=== PATIENT | male | born 1955 | race Caucasian/White ===

== ENCOUNTER 2025-01-18 10:04 | Outpatient (AMB) | payer MEDICARE, OTHER, SELFPAY ==
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
[2025-01-18 10:09] VITALS: BP 106/80; PULSE 76; O2SAT 98; BMI 23.8
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
--- OUTSIDE RECORDS SUMMARY | 2025-01-18 11:05 | XMS_ITS ---
Author Organization [facility] Address [address] [place] [address] Care Team Providers Care Dental Lab Technician Name Role Phone AUSTIN NIETO Primary Care Provider REASON FOR VISIT LDCT form Encounters Encounter Location Date Provider Diagnosis [facility] [address] [place] [address] 05/09/2024 AUSTIN NIETO Plan Of Treatment Next Appt Details Provider Name:AUSTIN NIETO , 04/27/2025 08:00:00 AM, [address], [place], [address], Progress Notes * Dov HILLDOB:[birth year] (68 yo M)Acc No.[id number]:05/09/2024 Patient:?Dov HILL :1955???Age:68 Y???Sex:Male Address:[place] [address] * true * Date:? Generated for Jasviri óscar/Ingris/eTransmitting on:?01/18/2025 11:05 AM EDT
--- OUTSIDE RECORDS SUMMARY | 2025-01-18 11:05 | XMS_ITS ---
Author Organization [facility] Address [address] [place] [address] Care Team Providers Care Record Center Coordinator Name Role Phone EMILIA AUSTIN Primary Care Provider REASON FOR VISIT LDCT Screening form Encounters Encounter Location Date Provider Diagnosis [facility] [address] [facility] [address] [place] [address] 04/27/2024 AUSTIN NIETO Plan Of Treatment Next Appt Details Provider Name:AUSTIN NIETO , 04/27/2025 08:00:00 AM, [address] [facility] [address], [place], [address], Progress Notes * Dov HILLDOB:[birth year] (68 yo M)Acc No.[id number]:04/27/2024 Patient:?Dov HILL :1955???Age:68 Y???Sex:Male Address:[place] [address] * true * Date:? Generated for Printi ng/Fadeirdreg/eTransmitting on:?01/18/2025 11:05 AM EDT
--- OUTSIDE RECORDS SUMMARY | 2025-01-18 11:06 | XMS_ITS ---
Author Organization [facility] Address [address] [place] [address] Care Team Providers Care Client Operations Manager Name Role Phone RYANAUSTIN Garcia Primary Care Provider [phone] Allergies No Known Allergies Reason For Referral Reason Evaluation and manag ement Diagnosis 1 Low back pain, unspe cified (M54.50) Referral Organization [facility] Referring Provider First Name AUSTIN Referring Provider Last Name RYANJose Referring Provider Speciality Internal M edicine Referred Provider Specialty Physical The rapist General Notes Referral sent to [facility] in [place] - Office will call patient for scheduling.Maritza Latraya 06/30/2024 04:59:28 PM > Referral Priority Routine REASON FOR VISIT pain, back Medications Medication SIG (Take, Route, Frequency, Duration) Notes Start Date End Date Status Prevnar 20 0.5 ML as directed Intramuscular [...] a day for 14 days 06/22/2024 Active Shingrix 50 MCG/0.5ML as directed Intramuscular 1 for 365 days 02/18/2022 Not-Taking Vital Signs Temperature 96.7 degrees Fahrenheit 06/22/20 24 Oximetry 100 % 06/22/2024 Heart Rate 68 /min 06/22/2024 Blood pressure systolic 130 mm Hg 06/22/20 24 Blood pressure diastolic 82 mm Hg 024 Weight 164.9 lbs 06/22/2024 BMI 24.35 kg/m2 06/22/2024 Height 69 in 06/22/2024 Encounters Encounter Location Date Provider Diagnosis [facility] [address] [address] 06/22/2024 AVILA RYANJose Strain of muscle, fascia and tendon of lower back, initial encounter S39.012A Assessments Encounter Date Diagnosis (ICD Code) Assessment Notes Treatment Notes Treatment Clinical Notes Section Notes 06/22/2024 Strain of muscle, fascia and tendon [...] Meloxicam, 15 MG, once a day and methylprednisolon e, 4 MG, with food BID for 5 days. Referred to Physical therapy. Ice the affected area after activity. General health concerns discussed with patient. Scribe services used to formulate this note under HIPAA compliance and under [place] law mandated for scribe services. Patient aware of service. Verbal consent and written consent taken from the patient. Patient understands and verbalizes understanding of the scribes services and all questions answered regarding scribes services. Patient agrees to use of scribes services. Plan Of Treatment Medication Medication Name Sig Start Date Stop Date Notes methylPREDNISolone 4 MG 1 tablet with fo od or milk Orally every 12 hrs for 5 days 06/22/2024 Meloxicam 15 MG 1 tablet Orally Once a day for 30 days 06/22/2024 tiZANidine HCl 4 MG 1 tablet at bedtime as needed Orally Once a day for 14 days 06/22/2024 Referrals Referral Date Details 06/22/2024 06/22/2024, Evaluati on and management Next Appt Details Follow Up: next appt, Reason : Provider Name:AUSTIN NIETO , 04/27/2025 08:00:00 AM, [address] [address], [place], [address], Progress Notes * Dov HILLDOB:[birth year] (68 yo M)Acc No.[id number]:06/22/2024 Patient:?Dov HILL Provider:?AUSTIN NIETO MD :1955???Age:68 Y???Sex:Male Waldo e:06/22/2024 Address:[address] [place] [address] Radha moses [id number] Subjective: * Chief Complaints: * ???Pain, back * HPI: ???Internal Medicine:? Mr. Hill is a 68-year-old gentleman with ASSHA and is a hepatitis C carrier here complaining of low back pain. It is localized and does not radiate down the legs and it is worse in the morning and no or GI dysfunction. He went to a chiropractor not too long ago which did not help. He is physically active and exercises. No history of fall. He does not need help with ADLs and IADLs. He does not appear anxious or depressed. He has mild SASHA and does not use a CPAP. Denies excessive daytime sleepiness. His appetite is good. No GI or symptoms. He denies any other active issues or concerns. * ROS:?General/Constitutional:?Overall health?Good.?Change in appetite?denies.?Chills?denies.?Fever?denies.?Night sweats?denies.?Sleep disturbance?denies.?Weight gain?denies.?Weight loss?denies.?Neurologic:?Difficulty speaking?denies.?Dizziness?denies.?Gait abnormality?denies.?Headache?denies.?Loss of strength?denies.?Memory loss?denies.?Seizures?denies.?Tingling/Numbness?denies ?.?Ophthalmologic:?Blurred vision?denies.?Discharge?denies.?Dry eye?denies.?Red eye?denies.?ENT:?Change in Voice?Denies.?Cold Symptoms?Denies.?Cough?Denies.?Dizziness?Denies.?Nasal Congestion?Denies.?Otalgia?Denies.?postnasal drip?Denies.?Blocked ear?denies.?Nosebleed?denies.?Snoring?denies.?Cardiovascular:?Diaphoresis?Denies.?Pedal Edema?Denies.?PND (Paroxsymal nocturnal dyspnea)?Denies.?Chest pain?denies.?Difficulty laying flat?denies.?Dyspnea on exertion?denies.?Heart murmur?denies.?Orthopnea?denies.?Respiratory:?Snoring?denies.?Asthma?denies.?Cough?denies.?Shortness of breath with exertion?denies.?Sputum production?denies.?Wheezing?denies.?Gastrointestinal:?Change in bowel habits?denies.?Constipation?denies.?Decreased appetite?denies.?Diarrhea?denies.?Heartburn?denies.?Nausea?denies.?Vomiting?sheela es.?Musculoskeletal:?tingling/numbness?Denies.?myalgias?Denies.?Joint Swelling?Denies.?extremeties?normal.?Arthritis?denies.?Back problems?,admits.?Carpal tunnel?denies.?Joint stiffness?denies.?Muscle aches?denies.?Endocrine:?Bowel Changes?Denies.?Breast Discharge?Denies.?poor libido?Denies.?Cold intolerance?denies.?Excessive sweating?denies.?Excessive thirst?denies.?Frequent urination?denies.?Thyroid problems?denies.?Skin:?Bruising?Denies.?Eczema?denies.?Hair changes?denies.?Rash?denies.?Skin lesion(s)?denies.?Psychiatric:?Anxiety?denies.?Depressed mood?denies.?Difficulty sleeping?denies.?Nervous breakdown?denies.?Substance abuse?denies.?Urology:?abnormal menstrual bleeding?denies.?blood in urine?denies.?burning on urination?denies.?difficulty urinating?denies.?discharge?denies.?dysuria?denies.? * Medical History:? * Medications:?Not-TakingCrest or 5 MG Tablet 1 tablet Orally Once a day Prevnar 20 0.5 ML Suspension Prefilled Syringe as directed Intramuscular 1 Shingrix 50 MCG/0.5ML Suspension Reconstituted as directed Intramuscular 1 Medication List reviewed and reconciled with the patientNot-Taking Crestor 5 MG Tablet 1 tablet Orally Once a day Not-Taking Prevnar 20 0.5 ML Suspension Prefilled Syringe as directed Intramuscular 1 Not-Taking Shingrix 50 MCG/0.5ML Suspension Reconstituted as directed Intramuscular 1 Medication List reviewed and reconciled with the patient * Allergies:?N.K.D.A.no[Allerg ies Verified] Objective: * Vitals:?Temp:96.7F, Oxygen s at %:100%, HR:68/min, BP:130/82mm Hg, Wt:164.9lbs, BMI:24.35Index, Ht: 69 in. * Examination: ???General Examination: ?Psychiatry?Normal.?GENERAL APPEARANCE:?Well developed, well nourished, in no acute distress.?MUSCULOSKELETAL:?Normal.?HEAD:?Normocephalic, atraumatic.?EYES:?Pupils equal, round, reactive to light and accommodation, sclera non-icteric.?EARS:?Normal.?ORAL CAVITY:?Normal.?THROAT:?Clear.?OROPHARYNX?Normal.?SINUSES?Deviated nasal septum.?NECK/THYROID:?Neck supple, full range of motion, no cervical lymphadenopathy.?SKIN:?Warm and dry, no suspicious lesions.reticular veins.?HEART:?Normal.?LUNGS:?Normal.?BREASTS:?__.?ABDOMEN:?Soft, nontender, nondistended, bowel sounds present, normal.?EXTREMITIES:?Normal.?PERIPHERAL PULSES:?Normal.?NEUROLOGIC:?Nonfocal,? appropriate?motor strength normal upper and lower extremities, sensory exam intact ?SLR is 90 degree(s) bilaterally he can walk on his heels and toes.?FEMALE GENITOURINARY:?__.?MALE GENITOURINARY:?prostate smooth, nontender, normal- on last exam and patient deferred at this time.?PODIATRIC:?Normal.?Communication Consultant? .? Assessment: * Assessment: 1.?Strain of muscle, fascia and tendon of lower back, initial encounter - S39.012A (Primary)? Mr. Hill is a 68-year- old gentleman with SASHA and is a hepatitis [...] Meloxicam, 15 MG, once a day and methylprednisolone, 4 MG, with food BID for 5 days. Referred to Physical therapy. Ice the affected area after activity. General health concerns discussed with patient. Scribe services used to formulate this note under HIPAA compliance and under [place] law mandated for scribe services. Patient aware of service. Verbal consent and written consent taken from the patient. Patient understands and verbalizes understanding of the scribes services and all questions answered regarding scribes services. Patient agrees to use of scribes services. Plan: * Treatment: 2.?Others? Referral To:Physical Therapist ?Reason:low back pain * Procedure Codes:?G8752 MOST RECENT SYSTOLIC BP < 140MM [id number] MOST RECENT DIASTOLIC BP < 90MM HG * Follow Up:?next appt * Images: * Sign off status: Completed true * Provider:?AUSTIN NIETO MD Date:?06/22 Generated for Nahum cantrell/Ingris/Srikanth on:?01/18/2025 11:05 AM EDT History and Physical Notes * HPI (History of Present Illness) Category Sub-Category Detail Notes Category Not es Internal Medicine Mr. 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 It is localized and does not radiate down the legs and it is worse in the morning and no or GI dysfunction. He went to a chiropractor not too long ago which did not help. He is physically active and exercises. No history of fall. He does not need help with ADLs and IADLs. He does not appear anxious or depressed. He has mild SASHA and does not use a CPAP. Denies excessive daytime sleepiness. His appetite is good. No GI or symptoms. He denies any other active issues or concerns. Examination Category Sub-Category Detail Notes Category Not es General Examination GENERAL APPEARANCE: Well dev eloped, well nourished, in no acute distress HEAD: Normocephalic, atrau matic EYES: Pupils equal, round, reactive to light and accommodation, sclera non-icteric EARS: Normal THROAT: Clear NECK/THYROID: Neck supple, full ra nge of motion, no cervical lymphadenopathy HEART: Normal LUNGS: Normal ABDOMEN: Soft, nontender, non distended, bowel sounds present, normal NEUROLOGIC: Nonfocal, appropriat e motor strength normal upper and lower extremities, sensory exam intact SLR is 90 degree(s) bilaterally he can walk on his heels and toes SKIN: Warm and dry, no erica picious lesions. reticular veins EXTREMITIES: Normal PERIPHERAL PULSES: Normal BREASTS: __ MUSCULOSKELETAL: Normal MALE GENITOURINARY: prostate smooth, non tender, normal- on last exam and patient deferred at this time FEMALE GENITOURINARY: __ ORAL CAVITY: Normal PODIATRIC: Normal Psychiatry Normal OROPHARYNX Normal SINUSES Deviated nasal septu m Communication Consultant Consultation Request Notes Referral Date Referring Provider Referred Provider Not chung 06/22/2024 AUSTIN NIETO , Evaluation and management
== END 2025-01-18 10:46 | disposition home or self-care (01) ==
LOC: HO.RHES 10:05
PROVIDERS: PCP Hospitalist; Visit Provider Internal Medicine Rheumatology
DX: M81.0 Age-related osteoporosis without current pathological fracture (principal)
CPT/HCPCS: 99214; G2211

== ENCOUNTER → 2025-01-18 10:04 | Outpatient (BNVA) | payer MEDICARE, SELFPAY | PROVIDERS: PCP Hospitalist; Visit Provider Internal Medicine Rheumatology | DX: M81.0 Age-related osteoporosis without current pathological fracture (principal) | CPT/HCPCS: 99212 ==

== ENCOUNTER 2025-04-19 09:03 | Outpatient (AMB) | payer MEDICARE, SELFPAY ==
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
[2025-04-19 09:10] VITALS: BP 130/71; PULSE 63; O2SAT 96; BMI 23.9
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
== END 2025-04-19 10:16 | disposition home or self-care (01) ==
LOC: HO.RHES 09:04
PROVIDERS: PCP Hospitalist; Visit Provider Internal Medicine Rheumatology
DX: M81.0 Age-related osteoporosis without current pathological fracture (principal)
CPT/HCPCS: 99214; G2211

== ENCOUNTER 2025-04-19 09:03 | Outpatient (REF) | payer MEDICARE, SELFPAY ==
[2025-04-19 13:37] LABS: Albumin Level 4.7 g/dL (3.5-5.0); Calcium 9.2 mg/dL (8.4-10.2); Estimated Glomerular Filt Rate > 60
== END 2025-04-19 09:04 | disposition home or self-care (01) ==
LOC: HO.HKASLDS 09:03
PROVIDERS: PCP Hospitalist; Visit Provider Internal Medicine Rheumatology
DX: M81.0 Age-related osteoporosis without current pathological fracture (principal)
CPT/HCPCS: 36415; 82040; 82306; 82310; 82565; 99212

== ENCOUNTER 2025-06-28 09:00 | Outpatient (REF) | payer MEDICARE, SELFPAY ==
--- NOTE | ~2025-06-28 | MM_ITS ---
EXAMINATION: DXA BONE DENSITY AXIAL HISTORY: M81.0 - Age-related osteoporosis without current pathological fracture TECHNIQUE: [employer] Dual energy absorptiometry (DEXA) of the lumbar spine, total left hip, and femoral neck was performed. COMPARISON: There are no prior studies for comparison. FINDINGS: The bone mineral density of the lumbar spine is 0.735 g/cm2, corresponding to a T-score of -4.0, and a Z-score of -3.3. This is indicative of osteoporosis. The bone mineral density of the left total hip is 0.695 g/cm2, corresponding to a T-score of -2.8, and a Z-score of -1.9. This is indicative of osteoporosis. The bone mineral density of the left femoral neck is 0.635 g/cm2, corresponding to a T-score of -3.3, and a Z-score of -1.9. This is indicative of osteoporosis. FRACTURE RISK: The FRAX index suggests a risk of major osteoporotic fracture of 341%, and of hip fracture 21.9%. MM/XR DEXA axial skeleton IMPRESSION: Based on bone mineral density, and according to World Health Organization (WHO) criteria, the diagnosis is consistent with osteoporosis. Statistically, 68% of repeat scans fall within 1 SD (+/- 0.010 g/cm2 for AP spine L1-L4) and 1 SD (+/- 0.012 g/cm2 for femur total) FRAX is a trademark of the [employer]'s [place] for Metabolic Bone Disease, a World Health Organization (WHO) Collaborating Center. Electronically signed by: Zachary Boudreaux MD 06/28/2025 10:25 AM EDT
== END 2025-06-28 09:01 | disposition home or self-care (01) ==
LOC: HO.MAMMO 09:00
PROVIDERS: PCP Hospitalist; Visit Provider Internal Medicine Rheumatology
DX: M81.0 Age-related osteoporosis without current pathological fracture (principal)
CPT/HCPCS: 77080

== ENCOUNTER → 2025-06-28 09:15 | Outpatient (BNV) | payer MEDICARE, SELFPAY | PROVIDERS: PCP Hospitalist; Visit Provider Radiology Diagnostic Radiology | DX: M81.0 Age-related osteoporosis without current pathological fracture (principal) | CPT/HCPCS: 77080 ==

== ENCOUNTER 2025-09-20 08:37 | Outpatient (AMB) | payer MEDICARE, SELFPAY ==
--- OUTSIDE RECORDS SUMMARY | 2025-04-27 03:00 | XMS_ITS ---
Author Organization [facility] Address [address] [place] [address] Care Team Providers Care Dopeman Name Role Phone AUSTIN NIETO Primary Care Provider REASON FOR VISIT Medicare Wellness Medications Medication SIG (Take, Route, Frequency, Duration) Notes Start Date End Date Status methylPREDNISolone 4 MG 1 tablet with fo od or milk Orally every 12 hrs; Duration: 5 days 06/22/2024 Active Meloxicam 15 MG 1 tablet Orally Once a day; Duration: 30 days 06/22/2024 Active tiZANidine HCl 4 MG 1 tablet at bedtime as needed Orally Once a day; Duration: 14 days 06/22/2024 Active Prevnar 20 0.5 ML as directed Intramuscular 1; Duration: 365 days 02/18/2022 Not-Taking Crestor 5 MG 1 tablet Orally Once a day; Duration: 90 days 04/26/2024 Not-Takin g Shingrix 50 MCG/0.5ML as directed Intramuscular 1; Duration: 365 days 02/18/2022 Not-Taking Encounters Encounter Location Date Provider Diagnosis [facility] [address] [place] [address] 04/27/2025 AUSTIN NIETO Plan Of Treatment Next Appt Details Provider Name:AUSTIN NIETO , 05/29/2026 08:00:00 AM, [address], [place], [address], Progress Notes * Mike HILL:[birth year] (69 yo M)Acc No.[id number]:04/27/2025 Progress Note Patient: Dov MACHUCA Provider: Eduardo NIETO MD :1955 A ge:69 Y S ex:Male Date:04/27/2025 Address:[address] [place] [address] [id number] Subjective: * Chief Complaints: * 1 . Medicare Wellness. * Medical History: * Medications: T aking tiZANidine HCl 4 MG Tablet 1 tablet at bedtime as needed Orally Once a day , Taking Meloxicam 15 MG Tablet 1 tablet Orally Once a day , Taking methylPREDNISolone 4 MG Tablet 1 tablet with food or milk Orally every 12 hrs , Not-Taking Crestor 5 MG Tablet 1 tablet Orally Once a day , Not-Taking Prevnar 20 0.5 ML Suspension Prefilled Syringe as directed Intramuscular 1 , Not-Taking Shingrix 50 MCG/0.5ML Suspension Reconstituted as directed Intramuscular 1 Objective: * Vitals: Assessment: Plan: * Treatment: * Procedure Codes: N OSHO NO SHOW FEE * Preventive Medicine: C OVID - 2020 (2), 2021 (1) FLU - TDAP - SHINGRIX - 04/2023 PNEUMONIA - COLONOSCOPY - 05/2022, MARISSA (EVERY 5 YEARS) EYE EXAM -. * Images: * Electronic signature of BIPIN NIETO MD on 09/20/2025 at 08:41 AM EST Sign off status: Pending * Provider: Eduardo NIETO MD Date: 0 04/27/2025 Generated for Nahum cantrell/Ingris/Srikanth on: 1 08:41 AM EST
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
[2025-09-20 08:41] VITALS: BP 120/80; PULSE 82; O2SAT 96; BMI 24.2
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
== END 2025-09-20 09:21 | disposition home or self-care (01) ==
LOC: HO.RHES 08:38
PROVIDERS: PCP Hospitalist; Visit Provider Internal Medicine Rheumatology
DX: M81.0 Age-related osteoporosis without current pathological fracture (principal)
CPT/HCPCS: 99214; G2211

== ENCOUNTER → 2025-09-20 08:37 | Outpatient (BNVA) | payer MEDICARE, SELFPAY | PROVIDERS: PCP Hospitalist; Visit Provider Internal Medicine Rheumatology | DX: M81.0 Age-related osteoporosis without current pathological fracture (principal); Z87.81 Personal history of (healed) traumatic fracture; F10.21 Alcohol dependence, in remission; Z87.891 Personal history of nicotine dependence | CPT/HCPCS: 99212 ==